=== PATIENT | male | born 1970 | race Native Hawaiian/Other Pacific Islander ===

== ENCOUNTER → 2017-11-14 | Outpatient (CLI) | payer BC ==
--- NOTE | 2017-11-14 15:05 | US ---
EXAMINATION TYPE: US kidneys/renal and bladder DATE OF EXAM: 11/14/2017 COMPARISON: NONE CLINICAL HISTORY: R10.9 FLANK PAIN. EXAM MEASUREMENTS: Right Kidney: 12.0 x 5.0 x 5.6 cm Left Kidney: 11.6 x 6.1 x 5.6 cm Right Kidney: No hydronephrosis or masses seen Left Kidney: No hydronephrosis or masses seen Bladder: wnl Bilateral Jets seen: Yes There is no evidence for hydronephrosis at this point in time. No nephrolithiasis is seen. No berenice s are identified. The urinary bladder is anechoic. Bilateral ureteral jets are seen. IMPRESSION: No hydronephrosis, nephrolithiasis or sonographic sequela of medical renal disease.
== END | disposition home or self-care (01) ==
LOC: RADUSWWP 14:05
PROVIDERS: ATTEND Internal Medicine
DX: R10.9 Unspecified abdominal pain (principal)
CPT/HCPCS: 76770

== ENCOUNTER → 2018-05-28 | Outpatient (CLI) | payer BC ==
--- NOTE | 2018-05-28 08:52 | CT ---
EXAMINATION TYPE: CT abdomen pelvis wo con DATE OF EXAM: 05/28/2018 COMPARISON: None HISTORY: Left lower quadrant pain CT DLP: 688 mGycm Automated exposure control for dose reduction was used. TECHNIQUE: Helical acquisition of images was performed from the lung bases through the pelvis. FINDINGS: Lack of intravenous and oral contrast limit evaluation of both the hollow and solid viscera . LUNG BASES: There is minimal left basilar subsegmental atelectasis is present. LIVER/GB: No significant abnormality is appreciated. PANCREAS: No significant abnormality is seen. SPLEEN: No significant abnormality is seen. ADRENALS: No significant abnormality is seen. KIDNEYS: There is a punctate nonobstructing 1 to 2 mm left lower pole renal calculus seen on coronal series 5 image 60. No hydronephrosis is seen of either kidney. No urinary bladder calculi. No hydrour eter. FREE AIR: No free air is visualized RETROPERITONEAL ADENOPATHY: No greater than 1 cm short axis lymph node is noted in the abdomen or pe lvis given the limitation of lack of intravenous contrast. REPRODUCTIVE ORGANS: Prostate gland is heterogenous containing few central zone calcifications. OSSEOUS STRUCTURES: There is grade 1 anterolisthesis of L4 on L5 secondary to bilateral pars interar ticularis defects. Bilateral pars interarticularis defects are also seen of L5 on S1 without anteroli sthesis. BOWEL: There is a moderate amount retained colonic stool. No evidence of dilated large or small adam l. Appendix is air-filled and within normal limits of size. OTHER: Moderate atherosclerosis is seen of the abdominal aorta and its branches. Abdominal aorta is o f normal course and caliber. No inguinal hernia is identified. IMPRESSION: 1. SOLITARY NONOBSTRUCTING 1 TO 2 MM LEFT RENAL CALCULUS. 2. MODERATE AMOUNT RETAINED COLONIC STOOL WITHOUT EVIDENCE OF BOWEL OBSTRUCTION OR SURROUNDING INFLAM MATORY FAT STRANDING. 3. NO FINDINGS TO CORRESPOND TO THE PATIENT'S FOCAL LEFT LOWER QUADRANT PAIN. 4. 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
== END ==
LOC: RADCTMAIN 08:03
PROVIDERS: ATTEND Internal Medicine
DX: N20.0 Calculus of kidney (principal)
CPT/HCPCS: 74176

== ENCOUNTER → 2022-12-19 | Outpatient (CLI) | payer BC ==
--- NOTE | 2022-12-20 08:12 | XR ---
EXAMINATION TYPE: XR Hip Complete RT DATE OF EXAM: 12/19/2022 COMPARISON: NONE HISTORY: Pain TECHNIQUE: 2 views submitted FINDINGS: There is no evidence of erosive change or acute fracture. Hypertrophic changes in the acetabulum. Mil d arthropathy. Diffuse IMPRESSION: 1. Mild arthropathy.
--- NOTE | 2022-12-20 08:17 | XR ---
EXAM TYPE: LUMBAR SPINE X RAY SERIES COMPARISON: NONE HISTORY: Pain TECHNIQUE: 3 views are submitted. FINDINGS: Alignment is anatomic. The pedicles are intact. The transverse processes are intact. There is a gr kika 1 anterolisthesis L4-5 and L5-S1 with spondylolysis at L4 and L5. Multilevel mild spurring. Diffu se osteopenia. IMPRESSION: 1. Severe degenerative disc disease L4-5 and L5-S1 suspect spondylolysis at both levels with grade 1 anterolisthesis. This likely results in foraminal encroachment. Recommend follow-up MRI.
== END | disposition home or self-care (01) ==
LOC: LABWHC1 15:28
PROVIDERS: ATTEND Internal Medicine
DX: M12.9 Arthropathy, unspecified (principal); M51.36 Other intervertebral disc degeneration, lumbar region
CPT/HCPCS: 72100; 73502

== ENCOUNTER → 2023-04-11 | Outpatient (CLI) | payer BC ==
[2023-04-12 02:40] LABS: Basophils # (A) 0.11 X 10*3/uL (0.00-0.10); Eosinophils # (A) 0.25 X 10*3/uL (0.04-0.35); Eosinophils % (A) 2.2 %; HCT 35.8 % (39.6-50.0); HGB 10.9 g/dL (13.0-17.0); Lymphocytes % (A) 40.5 %; MCH 27.1 pg (27.0-32.0); MCHC 30.4 g/dL (32.0-37.0); MCV 89.1 FL (80.0-97.0); Mean Platelet Volume 11.2 FL (9.5-12.2); Monocytes # (A) 0.68 X 10*3/uL (0.20-1.00); Monocytes % (A) 6.1 %; NRBC Per 100 WBC 0 X 10*3/uL (0.00-0.01); Neutrophils # (A) 5.54 X 10*3/uL (1.80-7.70); Neutrophils % (A) 49.8 %; Platelet Count 263 X 10*3/uL (140-440); RBC 4.02 X 10*6/uL (4.40-5.60); RDW 13.5 % (11.5-14.5); WBC 11.12 X 10*3/uL (4.50-10.00)
[2023-04-12 02:57] LABS: ALT 11 U/L (10-49); AST 10 U/L (14-35); Albumin 3.5 g/dL (3.8-4.9); Albumin/Globulin Ratio 1.21 Ratio (1.60-3.17); Alkaline Phosphatase 167 U/L (41-126); BUN/Creat Ratio 20.56 Ratio (12.00-20.00); Blood Urea Nitrogen 18.5 mg/dL (9.0-27.0); Calcium 9.1 mg/dL (8.7-10.3); Carbon Dioxide 22.9 mmol/L (21.6-31.8); Chloride 103 mmol/L (96-109); Globulin 2.9 g/dL (1.6-3.3); Glucose 321 mg/dL (70-110); Potassium 4.8 mmol/L (3.5-5.5); Sodium 136 mmol/L (135-145); Total Bilirubin <0.2 mg/dL (0.3-1.2); Total Protein 6.4 g/dL (6.2-8.2)
[2023-04-12 04:05] LABS: INR 0.93 sec (0.93-1.11); Prothrombin Time 10.1 sec (9.9-11.9)
== END | disposition home or self-care (01) ==
LOC: LABPAT 15:08
PROVIDERS: ATTEND Internal Medicine
DX: Z01.812 Encounter for preprocedural laboratory examination (principal); E11.9 Type 2 diabetes mellitus without complications
CPT/HCPCS: 80053; 83036; 85025; 85610; 93005

== ENCOUNTER → 2023-04-14 | Outpatient (CLI) | payer BC ==
--- NOTE | 2023-04-15 08:35 | CT ---
EXAMINATION TYPE: CT lumbar spine wo con DATE OF EXAM: 04/14/2023 5:55 PM COMPARISON: MRI 912 HISTORY: low back pain, pre surgical CT DLP: 467.10 mGycm Automated exposure control for dose reduction was used. Unenhanced CT of the lumbar spine was performed. Bone and soft tissue window settings are submitted as well as coronal and sagittal reconstructions. L1-L2: Normal disc space height. No disc herniation protrusion or central stenosis. No facet joint arthropathy. No evidence for foraminal encroachment. L2-L3: Normal disc space height. No disc herniation protrusion or central stenosis. No facet joint arthropathy. No evidence for foraminal encroachment. L3-L4: Normal disc space height. No disc herniation protrusion or central stenosis. No facet joint arthropathy. No evidence for foraminal encroachment. Facet arthropathy. L4-L5: Vacuum disc with grade 1 anterolisthesis. Bilateral spondylolysis and there is facet arthropat hy. Broad-based central disc the patient is very severe bilateral foraminal protrusion L5-S1: Vacuum disc compatible severe degenerative disc disease. There is bilateral spondylolysis with no significant spondylolisthesis. Broad-based disc protrusion with moderate canal stenosis and sever e bilateral foraminal encroachment. Vertebral body hemangioma lower thoracic spine. Clear. Aorta normal caliber. Nodularity left renal gl and is nonspecific subcentimeter in size, most likely a benign adenoma. Hypertrophic arthropathy of t he SI joints. 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 IMPRESSION: 1. Severe degenerative disc disease L4-L5 with grade 1 anterolisthesis secondary to bilateral spondyl olysis. Severe bilateral foraminal encroachment with broad-based disc protrusion and mild central chhaya nosis. 2. Severe degenerative disc disease L5-S1 with bilateral spondylolysis. Severe bilateral foraminal en croachment with broad-based disc protrusion and moderate central stenosis.
== END | disposition home or self-care (01) ==
LOC: RADCTMAIN 17:20
PROVIDERS: ATTEND Orthopaedic Surgery
DX: M47.817 Spondylosis without myelopathy or radiculopathy, lumbosacral region (principal); M51.36 Other intervertebral disc degeneration, lumbar region; M43.16 Spondylolisthesis, lumbar region; M51.37 Other intervertebral disc degeneration, lumbosacral region; M51.26 Other intervertebral disc displacement, lumbar region; M48.061 Spinal stenosis, lumbar region without neurogenic claudication
CPT/HCPCS: 72131

== ENCOUNTER → 2023-09-26 | Outpatient (CLI) | payer BC ==
--- NOTE | 2023-09-28 18:46 | CTL ---
EXAMINATION TYPE: CT Low Dose Lung DATE OF EXAM ORDERED: 09/26/2023 HISTORY: . Lung cancer screening CT DLP: 101.[address] CTDI: 2.8 mGy Automated exposure control for dose reduction was used. SCREENING VISIT: Initial COMPARISON: None TECHNIQUE: Low dose computed tomography scan was performed through the chest at 1 mm thick sections a nd reconstructed images in the coronal plane at [address] DIAGNOSTIC QUALITY: Satisfactory FINDINGS: LUNG NODULES: Present, detailed below: 1. There is a 12 x 19 mm oval density at the right apex. Series 3 Image 31. This is lobular and has s ome spiculation on the lung windows. This is considered suspicious. 2. There is a 1.2 cm pleural-based density posterior medial left apex. Series 3 Image 44. LUNGS: COPD: Severity: Moderate Fibrosis: Severity: None Lymph nodes: None Other findings: None RIGHT PLEURAL SPACE: Effusion: None Calcification: None Thickening: None Pneumothorax: None LEFT PLEURAL SPACE: Effusion: None Calcification: None Thickening: None Pneumothorax: None HEART: Other: Ascending thoracic aorta at the level the main pulmonary artery measures 3.1 cm. The main pul monary artery at the bifurcation measures 2.7 cm. Heart Size: Normal Coronary calcification: None Pericardial effusion: None OTHER FINDINGS: Upper abdomen: Normal Bony thorax: Normal Supraclavicular region: Normal IMPRESSION: Nodular density within the right apex. Additional workup with PET CT is recommended. FOLLOW UP CT CHEST RECOMMENDATION: PET/CT CT LUNG RAD: Lung-Rad 4A Suspicious
== END | disposition home or self-care (01) ==
LOC: RADCTMAIN 06:25
PROVIDERS: ATTEND Internal Medicine
DX: Z12.2 Encounter for screening for malignant neoplasm of respiratory organs (principal); J98.4 Other disorders of lung; F17.210 Nicotine dependence, cigarettes, uncomplicated
CPT/HCPCS: 71271

== ENCOUNTER 2024-05-07 13:15 | Emergency (ER) | payer OTHER ==
--- NOTE | 2024-05-07 13:48 | ED ---
ENT HPI - General Stated complaint: L ear pain Time Seen by Provider: 05/07/24 13:46 Source: patient, RN notes reviewed - History of Present Illness Initial comments: 53 year old male presenting for left ear pain x 1 week. States pain has been worsening in severity and he now is having hearing loss in left side as well. Denies drainage, fever, nasal congestion, sore throat. - Related Data Home Medications Medication Instructions Recorded Confirmed Glimepiride 2 mg PO BID 04/29/23 04/29/23 metFORMIN HCL 1,000 mg PO BID 04/29/23 04/29/23 Previous Rx's Medication Instructions Recorded Amoxicillin 875 mg PO Q12HR 7 Days #14 tablet 05/07/24 Cetirizine HCl [Zyrtec] 10 mg PO DAILY 30 Days #30 tab 05/07/24 Allergies Allergy/AdvReac Type Severity Reaction Status Date / Time No Known Allergies Allergy Verified 05/07/24 14:21 Review of Systems ROS Statement: Those systems with pertinent positive or pertinent negative responses have been documented in the HPI. ROS Other: All systems not noted in ROS Statement are negative. Past Medical History Past Medical History: Diabetes Mellitus History of Any Multi-Drug Resistant Organisms: None Reported Past Surgical History: No Surgical Hx Reported Past Drug Use History: None Reported General Exam - General Exam Comments Initial Comments: Visual Physical Exam General: Well-appearing, nontoxic, no acute distress. Head: Normocephalic, atraumatic Eyes: PERRLA, EOMI ENT: Airway patent Chest: Nonlabored breathing Skin: No visual rash, normal skin tone Neuro: Alert and oriented 3 Musculoskeletal: No gross abnormalities General appearance: alert, in no apparent distress Head exam: Present: atraumatic, normocephalic, normal inspection Eye exam: Present: normal appearance, PERRL, EOMI. Absent: scleral icterus, conjunctival injection, periorbital swelling ENT exam: Present: normal exam, normal oropharynx, mucous membranes moist. Absent: TM's normal bilaterally (Right TM unable to be visualized due to large amount of cerumen. Left TM is erythematous and bulging, ear canal clear. No mastoid tenderness or erythema) Neck exam: Present: normal inspection. Absent: tenderness, meningismus, lymphadenopathy Respiratory exam: Present: normal lung sounds bilaterally. Absent: respiratory distress, wheezes, rales, rhonchi, stridor Cardiovascular Exam: Present: regular rate, normal rhythm, normal heart sounds. Absent: systolic murmur, diastolic murmur, rubs, gallop, clicks Neurological exam: Present: alert, oriented X3 Psychiatric exam: Present: normal affect, normal mood Skin exam: Present: warm, dry, intact, normal color. Absent: rash Course Vital Signs 05/07/24 14:22 Temperature 97.9 F Pulse Rate 87 Respiratory 18 Rate Blood Pressure 149/88 O2 Sat by Pulse 96 Oximetry Medical Decision Making - Medical Decision Making I completed the quick note portion of this chart signed Martha Angeles PA-C Was pt. sent in by a medical professional or institution (, [facility], [facility], urgent care, hospital, or [facility]...) When possible be specific @ -No Did you speak to anyone other than the patient for history (EMS, parent, family, police, friend...)? What history was obtained from this source @ -No Did you review nursing and triage notes (agree or disagree)? Why? @ -I reviewed and agree with nursing and triage notes Were old charts reviewed (outside hosp., previous admission, EMS record, old EKG, old radiological studies, urgent care reports/EKG's, [facility] records)? Report findings @ -No old charts were reviewed Differential Diagnosis (chest pain, altered mental status, abdominal pain women, abdominal pain men, vaginal bleeding, weakness, fever, dyspnea, syncope, headache, dizziness, GI bleed, back pain, seizure, CVA, palpatations, mental health, musculoskeletal)? @ -Otitis media, otitis externa, cerumen impaction, mastoiditis EKG interpreted by me (3pts min.). @ -None X-rays interpreted by me (1pt min.). @ -None done CT interpreted by me (1pt min.). @ -None done U/S interpreted by me (1pt. min.). @ -None done What testing was considered but not performed or refused? (CT, X-rays, U/S, labs)? Why? @ -None What meds were considered but not given or refused? Why? @ -None Did you discuss the management of the patient with other professionals (professionals i.e. , [facility], [facility], lab, RT, psych nurse, social security assessor, event specialist, teacher, assignment officer, binder caser)? Give summary @ -No Was smoking cessation discussed for >3mins.? @ -No Was critical care preformed (if so, how long)? @ -No Were there social determinants of health that impacted care today? How? (Homelessness, low income, unemployed, alcoholism, drug addiction, transportation, low edu. Level, literacy, decrease access to med. care, snf, rehab)? @ -No Was there de-escalation of care discussed even if they declined (Discuss DNR or withdrawal of care, Hospice)? DNR status @ -No What co-morbidities impacted this encounter? (DM, HTN, Smoking, COPD, CAD, Cancer, CVA, ARF, Chemo, Hep., AIDS, mental health diagnosis, sleep apnea, morbid obesity)? @ -None Was patient admitted / discharged? Hospital course, mention meds given and route, prescriptions, significant lab abnormalities, going to OR and other pertinent info. @ -Discharge. This is a 53-year-old male presenting for left ear pain x 1 week. Left TM is erythematous and bulging. No sign of mastoiditis. Discussed diagnosis of otitis media with patient. Prescribed high-dose amoxicillin and Zyrtec. Appropriate return precautions and follow-up care discussed. Case was discussed with my ED attending Dr. Richardson. Undiagnosed new problem with uncertain prognosis? @ -No Drug Therapy requiring intensive monitoring for toxicity (Heparin, Nitro, Insulin, Cardizem)? @ -No Were any procedures done? @ -No Diagnosis/symptom? @ -Left otitis media Acute, or Chronic, or Acute on Chronic? @ -Acute Uncomplicated (without systemic symptoms) or Complicated (systemic symptoms)? @ -Uncomplicated Side effects of treatment? @ -No Exacerbation, Progression, or Severe Exacerbation? @ -No Poses a threat to life or bodily function? How? (Chest pain, [place], [place], pneumonia, PE, COPD, DKA, ARF, appy, cholecystitis, CVA, Diverticulitis, Homicidal, Suicidal, threat to staff... and all critical care pts) @ -No Disposition Clinical Impression: Left otitis media Disposition: HOME SELF-CARE Condition: Stable Instructions (If sedation given, give patient instructions): Ear Infection (ED) Additional Instructions: Take amoxicillin twice daily for 7 days. Take Zyrtec once daily. You may use Tylenol or ibuprofen as needed for ear pain. Please return to the Emergency Department if symptoms worsen or any other concerns. Prescriptions: Amoxicillin 875 mg PO Q12HR 7 Days #14 tablet Cetirizine HCl [Zyrtec] 10 mg PO DAILY 30 Days #30 tab Is patient prescribed a controlled substance at d/c from ED?: No Referrals: None,Stated [Primary Care Provider] - 1-2 days Forms: Area PCPs Time of Disposition: 14:51
[2024-05-07 14:24] VITALS: BP 149/88; PULSE 87; RESP 18; TEMP 97.9
== END 2024-05-07 15:38 | disposition home or self-care (01) ==
LOC: EC 13:15
DX: H66.92 Otitis media, unspecified, left ear (principal)
CPT/HCPCS: 99282

== ENCOUNTER 2024-11-24 12:21 | Inpatient (IN) | payer OTHER ==
[2024-11-24] MEDS: IBUPROFEN 600 MG TAB PO STA (13:00)
[2024-11-24] MEDS: ACETAMINOPHEN TAB 500 MG TAB PO STA (13:00)
[2024-11-24] MEDS: LACTATED RINGERS 1,000 ML IV SCH (13:04)
--- NOTE | 2024-11-24 13:11 | ED ---
General Adult HPI - General Chief complaint: Shortness of Breath Stated complaint: Fall-Left Leg Time Seen by Provider: 11/24/24 12:35 Source: patient, RN notes reviewed, old records reviewed Mode of arrival: ambulatory Limitations: no limitations - History of Present Illness Initial comments: This is a 54-year-old male who presents to the emergency department complaining that he has been short of breath and coughing for about a week. Patient did not know he had a fever but in triage she had a fever. I took his oral temperature was 103.2. Patient denies any chest pain. Patient denies any back pain. Patient has abdominal pain patient has nausea vomiting diarrhea. Patient denies any dysuria hematuria urinary frequency - Related Data Home Medications Medication Instructions Recorded Confirmed Glimepiride 2 mg PO BID 04/29/23 04/29/23 metFORMIN HCL 1,000 mg PO BID 04/29/23 04/29/23 Previous Rx's Medication Instructions Recorded Amoxicillin 875 mg PO Q12HR 7 Days #14 tablet 05/07/24 Cetirizine HCl [Zyrtec] 10 mg PO DAILY 30 Days #30 tab 05/07/24 Allergies Allergy/AdvReac Type Severity Reaction Status Date / Time No Known Allergies Allergy Verified 11/24/24 12:32 Review of Systems ROS Statement: Those systems with pertinent positive or pertinent negative responses have been documented in the HPI. ROS Other: All systems not noted in ROS Statement are negative. Past Medical History Past Medical History: Diabetes Mellitus History of Any Multi-Drug Resistant Organisms: None Reported Past Surgical History: No Surgical Hx Reported Past Psychological History: No Psychological Hx Reported Smoking Status: Current every day smoker Past Alcohol Use History: None Reported Past Drug Use History: Marijuana General Exam - General Exam Comments Initial Comments: GENERAL: Patient is well-developed and well-nourished. Patient is nontoxic and well- hydrated and is in no acute distress. ENT: Neck is soft and supple. No significant lymphadenopathy is noted. Oropharynx is clear. Moist mucous membranes. Neck has full range of motion without eliciting any pain. EYES: The sclera were anicteric and conjunctiva were pink and moist. Extraocular movements were intact and pupils were equal round and reactive to light. Eyelids were unremarkable. PULMONARY: Unlabored respirations. Good breath sounds bilaterally. No audible rales rhonchi or wheezing was noted. CARDIOVASCULAR: There is a regular rate and rhythm without any murmurs gallops or rubs. ABDOMEN: Soft and nontender with normal bowel sounds. SKIN: Skin is clear with no lesions or rashes and otherwise unremarkable. NEUROLOGIC: Patient is alert and oriented x3. Cranial nerves II through XII are grossly intact. Motor and sensory are also intact. Normal speech, volume and content. Symmetrical smile. MUSCULOSKELETAL: Normal extremities with adequate strength and full range of motion. LYMPHATICS: No significant lymphadenopathy is noted PSYCHIATRIC: Normal psychiatric evaluation. Limitations: no limitations Course Vital Signs 11/24/24 11/24/24 11/24/24 12:26 12:43 13:15 Temperature 100.6 F H 103.2 F H Pulse Rate 131 H Respiratory 20 22 Rate Blood Pressure 156/79 O2 Sat by Pulse 95 Oximetry 11/24/24 11/24/24 13:40 15:07 Temperature 100.7 F H Pulse Rate 106 H 86 Respiratory 20 18 Rate Blood Pressure 138/72 115/87 O2 Sat by Pulse 95 94 L Oximetry Medical Decision Making - Medical Decision Making EKG is interpreted by myself and EKG shows a sinus tachycardia at 120 bpm HI 135 QRS 137 QT interval is 315 QTc is 386 Patient has right bundle branch block Was pt. sent in by a medical professional or institution ([facility], [facility] [facility], urgent care, hospital, or intermediate...) When possible be specific @ -No Did you speak to anyone other than the patient for history (EMS, parent, family, police, friend...)? What history was obtained from this source @ -No Did you review nursing and triage notes (agree or disagree)? Why? @ -I reviewed and agree with nursing and triage notes Were old charts reviewed (outside hosp., previous admission, EMS record, old EKG, old radiological studies, urgent care reports/EKG's, intermediate records)? Report findings @ -No old charts were reviewed Differential Diagnosis? @ -Differential Chest Pain: Stable Angina, Unstable Angina, STEMI, NSTEMI Aortic Dissection, Pneumothorax, Musculoskeletal, Esophageal Spasm GERD, Cholecystitis, Pancreatitis, Zoster, this is not meant to be an all-inclusive list. EKG interpreted by me (3pts min.). @ -As above X-rays interpreted by me (1pt min.). @ -Chest x-ray shows obvious pneumonia on the left base CT interpreted by me (1pt min.). @ -None done U/S interpreted by me (1pt. min.). @ -None done What testing was considered but not performed or refused? (CT, X-rays, U/S, labs)? Why? @ -None What meds were considered but not given or refused? Why? @ -None Did you discuss the management of the patient with other professionals (professionals i.e. DrLucian, PA, [employer], lab, RT, psych nurse, clinical social work therapist, host hostess, teacher, sales and service officer, caseworker)? Give summary @ -I spoke with Dr. Viveros he agreed to admit the patient Was smoking cessation discussed for >3mins.? @ -No Was critical care preformed (if so, how long)? @ -No Were there social determinants of health that impacted care today? How? (Homelessness, low income, unemployed, alcoholism, drug addiction, transportation, low edu. Level, literacy, decrease access to med. care, longterm, rehab)? @ -No Was there de-escalation of care discussed even if they declined (Discuss DNR or withdrawal of care, Hospice)? DNR status @ -No What co-morbidities impacted this encounter? (DM, HTN, Smoking, COPD, CAD, Cancer, CVA, ARF, Chemo, Hep., AIDS, mental health diagnosis, sleep apnea, morbid obesity)? @ -None Was patient admitted / discharged? Hospital course, mention meds given and route, prescriptions, significant lab abnormalities, going to OR and other pertinent info. @ -Patient would given a liter and a half of fluid and and 2 g of Rocephin IV push Undiagnosed new problem with uncertain prognosis? @ -No Drug Therapy requiring intensive monitoring for toxicity (Heparin, Nitro, Insulin, Cardizem)? @ -No Were any procedures done? @ -No Diagnosis/symptom? @ -Pneumonia Acute, or Chronic, or Acute on Chronic? @ -Acute Uncomplicated (without systemic symptoms) or Complicated (systemic symptoms)? @ -Comp Side effects of treatment? @ -No Exacerbation, Progression, or Severe Exacerbation? @ -No Poses a threat to life or bodily function? How? (Chest pain, [place], [place], pneumonia, PE, COPD, DKA, ARF, appy, cholecystitis, CVA, Diverticulitis, Homicidal, Suicidal, threat to staff... and all critical care pts) @ -Yes this can lead to sepsis and endorgan dysfunction Diagnosis/symptom? @ -Hyponatremia Acute, or Chronic, or Acute on Chronic? @ -Default Uncomplicated (without systemic symptoms) or Complicated (systemic symptoms)? @ -Complicated Side effects of treatment? @ -None Exacerbation, Progression, or Severe Exacerbation] @ -No Poses a threat to life or bodily function? @ -No Diagnosis/symptom? @ -Acute renal failure Acute, or Chronic, or Acute on Chronic? @ -Acute Uncomplicated (without systemic symptoms) or Complicated (systemic symptoms)? @ -Complicated Side effects of treatment? @ -None Exacerbation, Progression, or Severe Exacerbation] @ -No Poses a threat to life or bodily function? @ -Yes this can lead to electrolyte abnormalities and arrhythmia - Lab Data Result diagrams: 11/24/24 13:13 11/24/24 13:13 Lab Results 11/24/24 11/24/24 11/24/24 Range/Units 13:13 13:13 13:13 WBC 11.15 H (4.50-10.00) 10*3/uL RBC 4.18 L (4.40-5.60) 10*6/uL Hgb 11.1 L (13.0-17.0) g/dL Hct 32.4 L (39.6-50.0) % MCV 77.5 L (80.0-97.0) fL MCH 26.6 L (27.0-32.0) pg MCHC 34.3 (32.0-37.0) g/dL Plt Count 154 (140-440) 10*3/uL MPV 11.5 (9.5-12.2) fL Immature Gran % (Auto) 0.9 % Immature Gran # 0.10 H (0.00-0.04) 10*3/uL Sodium 127 L (137-145) mmol/L Potassium 4.8 (3.5-5.1) mmol/L Chloride 94 L (98-107) mmol/L Carbon Dioxide 18 L (22-30) mmol/L Anion Gap 15 mmol/L BUN 55 H (9-20) mg/dL Creatinine 3.11 H (0.66-1.25) mg/dL Est GFR (CKD-EPI)AfAm 25 (>60 ml/min/1.73 sqM) Est GFR (CKD-EPI)NonAf 21 (>60 ml/min/1.73 sqM) Glucose 300 H (74-99) mg/dL Plasma Lactic Acid Max 1.7 (0.7-2.0) mmol/L Calcium 8.1 L (8.4-10.2) mg/dL Total Bilirubin 0.6 (0.2-1.3) mg/dL AST 312 H (17-59) U/L ALT 85 H (4-49) U/L Alkaline Phosphatase 95 (38-126) U/L Total Protein 6.3 (6.3-8.2) g/dL Albumin 3.1 L (3.5-5.0) g/dL Influenza Type A (PCR) (Not Detectd) Influenza Type B (PCR) (Not Detectd) RSV (PCR) (Not Detectd) SARS-CoV-2 (PCR) (Not Detectd) 11/24/24 Range/Units 13:13 WBC (4.50-10.00) 10*3/uL RBC (4.40-5.60) 10*6/uL Hgb (13.0-17.0) g/dL Hct (39.6-50.0) % MCV (80.0-97.0) fL MCH (27.0-32.0) pg MCHC (32.0-37.0) g/dL Plt Count (140-440) 10*3/uL MPV (9.5-12.2) fL Immature Gran % (Auto) % Immature Gran # (0.00-0.04) 10*3/uL Sodium (137-145) mmol/L Potassium (3.5-5.1) mmol/L Chloride (98-107) mmol/L Carbon Dioxide (22-30) mmol/L Anion Gap mmol/L BUN (9-20) mg/dL Creatinine (0.66-1.25) mg/dL Est GFR (CKD-EPI)AfAm (>60 ml/min/1.73 sqM) Est GFR (CKD-EPI)NonAf (>60 ml/min/1.73 sqM) Glucose (74-99) mg/dL Plasma Lactic Acid Max (0.7-2.0) mmol/L Calcium (8.4-10.2) mg/dL Total Bilirubin (0.2-1.3) mg/dL AST (17-59) U/L ALT (4-49) U/L Alkaline Phosphatase (38-126) U/L Total Protein (6.3-8.2) g/dL Albumin (3.5-5.0) g/dL Influenza Type A (PCR) Not Detected (Not Detectd) Influenza Type B (PCR) Not Detected (Not Detectd) RSV (PCR) Not Detected (Not Detectd) SARS-CoV-2 (PCR) Not Detected (Not Detectd) Disposition Clinical Impression: Pneumonia, Hyponatremia, Acute renal failure Disposition: ADMITTED IP TO THIS HOSP Referrals: None,Stated [REFERRING] - 1-2 days Time of Disposition: 15:38
[2024-11-24 13:28] LABS: Basophils # (A) 0.06 10*3/uL (0.00-0.10); Basophils % (A) 0.5 %; Eosinophils # (A) 0.00 10*3/uL (0.04-0.35); Eosinophils % (A) 0.0 %; HCT 32.4 % (39.6-50.0); HGB 11.1 g/dL (13.0-17.0); Lymphocytes # (A) 0.58 10*3/uL (0.90-5.00); Lymphocytes % (A) 5.2 %; MCH 26.6 pg (27.0-32.0); MCHC 34.3 g/dL (32.0-37.0); MCV 77.5 fL (80.0-97.0); Monocytes # (A) 0.37 10*3/uL (0.20-1.00); Monocytes % (A) 3.3 %; Neutrophils # (A) 10.04 10*3/uL (1.80-7.70); Neutrophils % (A) 90.1 %; Platelet Count 154 10*3/uL (140-440); RBC 4.18 10*6/uL (4.40-5.60); RDW 13.7 % (11.5-14.5); WBC 11.15 10*3/uL (4.50-10.00)
[2024-11-24] MEDS: cefTRIAXone IN SWFI 1,000 MG/10 ML SYRINGE IVP STA ×2 (13:36→13:39)
[2024-11-24 13:50] LABS: ALT 85 U/L (4-49); AST 312 U/L (17-59); African American GFR (CKD) 25 (>60 ml/min/1.73 sqM); Albumin 3.1 g/dL (3.5-5.0); Alkaline Phosphatase 95 U/L (38-126); Anion Gap 15 mmol/L; Blood Urea Nitrogen 55 mg/dL (9-20); Calcium 8.1 mg/dL (8.4-10.2); Carbon Dioxide 18 mmol/L (22-30); Chloride 94 mmol/L (98-107); Glucose 300 mg/dL (74-99); Non-African American GFR(CKD) 21 (>60 ml/min/1.73 sqM); Potassium 4.8 mmol/L (3.5-5.1); Sodium 127 mmol/L (137-145); Total Protein 6.3 g/dL (6.3-8.2)
[2024-11-24 15:06] LABS: RSV Not Detected (Not Detectd)
--- NOTE | 2024-11-24 15:10 | XR ---
EXAMINATION TYPE: XR chest 2V DATE OF EXAM: 11/24/2024 1:30 PM COMPARISON: None CLINICAL INDICATION: Male, 54 years old with history of Fever, , TECHNIQUE: PA and lateral views FINDINGS: The cardiomediastinal silhouette, aorta, and pulmonary vasculature are within normal limits. Mild per ibronchial densities. Large area of posterior lower lung consolidation. Hyperinflation. IMPRESSION: A large left basilar pneumonia on the lateral view. There is background of COPD. [facility], Workstation: [facility], 11/24/2024 1:45 PM
[2024-11-24] MEDS ORDERED: PNEUMONIA PROTOCOL UTILIZED 1 EACH MISC PO PRN (15:42)
[2024-11-24 15:45] LABS: RBC Morphology Normal
[2024-11-24] MEDS: AZITHROMYCIN 500 MG in SODIUM CHLORIDE 0.9% 250 ML IVPB STA (16:27)
[2024-11-24] MEDS ORDERED: NALOXONE 0.4 MG/ML 1 ML VIAL IV PRN (16:53)
[2024-11-24] MEDS ORDERED: ONDANSETRON 4 MG/2 ML VIAL IVP PRN (16:54)
[2024-11-24] MEDS ORDERED: HYDROcodone/APAP 5-325MG 1 EACH TAB PO PRN (16:54)
[2024-11-24] MEDS ORDERED: IPRATROPIUM-ALBUTEROL 3 ML NEB INHALATION PRN (16:56)
[2024-11-24] MEDS ORDERED: DEXTROSE 50% SYRINGE 50 ML IVP PRN ×2 (16:58)
--- NOTE | 2024-11-24 17:12 | P.HPIM ---
History of Present Illness H&P Date: 11/24/24 54 year old M with PMH of DM presents to the ED. He complains of cough productive of yellow sputum, exertional shortness of breath that has been progressively getting worse over the past 3 weeks. He did experience a fall today as his left leg gave out. He attributes the fall to chronic back issues. Smokes 1 PPD since age 16. Reports poor oral intake for the last 4 days. No fever or chills. No chest pain. No sick contacts. In the ED he underwent extensive evaluation. Tmax 103.2F, RR 22, HR 131, BP 156/79, 95% on RA. CBC, CMP significant for WBC 11.15, RBC 4.18, Hg 11.1, Hct 32.4, MCV 77.5, Na 127, Cl 94, bicarb 18, BUN 55, Cr 3.11, glu 300, Ca 8.1, AST 312, ALT 85, alb 3.1. Flu, RSV, COVID neg. CXR sinsu tachycardia rate of 120. CXR large left basilar PNA. Patient is admitted for further workup and management. General: non toxic, no distress, appears at stated age Derm: warm, dry Head: atraumatic, normocephalic, symmetric Eyes: EOMI, no lid lag, anicteric sclera Mouth: no lip lesion, mucus membranes moist Cardiovascular: S1S2 tachy, no murmur Lungs: L side rhonchi with scattered wheezing bilateral, no rales , no accessory muscle use Ext: no gross muscle atrophy, no edema, no contractures Neuro: no focal neuro deficits Psych: Alert and oriented. Based on my assessment of this patient, this patient meets a high complexity level of care. Sepsis secondary to community acquired PNA: Tachycardia with elevated RR and + source of infection. Start Rocephin 2g IV QD + Azithromycin 500 mg PO QD. Mucinex 600 mg PO BID. Tylenol 650 mg PO Q6H PRN. DuoNeb QID scheduled and Q2H PRN SOB/wheezing. NS at 100 cc/hr. Telemetry monitoring. Obtain Legionella Ag, Sputum + BCx. Consult Pulmonary. LOUISE: Prerenal. Obtain Renal/Bladder US. IV hydration as above. Trend. Hyponatremia: Likely due to dehydration. IV hydration as above. Trend. DM with hyperglycemia: Obtain A1c. Start CECILY + Accuchecks ACHS along with hypoglycemic precautions. Microcytic anemia: Obtain iron studies. Transaminitis: Unknown etiology. Repeat in the AM. Fall: Fall precautions. PT and OT consult. CODE STATUS: FULL CODE. DVT Prophylaxis: Heparin SQ GI Prophylaxis: Designated medical POA if patient is not able to make medical decisions for themselves: Son I have reviewed the following lactation consultant notes: ED note I have reviewed the results of the following tests: As above I have ordered the following tests: As above I have discussed the care of this patient with the following independent historian: I have independently interpreted the following test below: CXR I have discussed the management of this patient with the following physician: Past Medical History Past Medical History: Diabetes Mellitus History of Any Multi-Drug Resistant Organisms: None Reported Past Surgical History: No Surgical Hx Reported Past Psychological History: No Psychological Hx Reported Smoking Status: Current every day smoker Past Alcohol Use History: None Reported Past Drug Use History: Marijuana Medications and Allergies Home Medications Medication Instructions Recorded Confirmed Type No Known Home Medications 11/24/24 11/24/24 History Allergies Allergy/AdvReac Type Severity Reaction Status Date / Time No Known Allergies Allergy Verified 11/24/24 16:27 Physical Exam Vitals: Vital Signs Temp Pulse Resp BP Pulse Ox 11/24/24 15:07 86 18 115/87 94 L 11/24/24 13:40 100.7 F H 106 H 20 138/72 95 11/24/24 13:15 22 11/24/24 12:43 103.2 F H 11/24/24 12:26 100.6 F H 131 H 20 156/79 95 Intake and Output 11/24/24 11/24/24 11/24/24 06:59 14:59 22:59 Other: Weight 72.575 kg Results CBC & Chem 7: 11/24/24 13:13 11/24/24 13:13 Labs: Abnormal Lab Results - Last 24 Hours (Table) 11/24/24 11/24/24 Range/Units 13:13 13:13 WBC 11.15 H (4.50-10.00) 10*3/uL RBC 4.18 L (4.40-5.60) 10*6/uL Hgb 11.1 L (13.0-17.0) g/dL Hct 32.4 L (39.6-50.0) % MCV 77.5 L (80.0-97.0) fL MCH 26.6 L (27.0-32.0) pg Immature Gran # 0.10 H (0.00-0.04) 10*3/uL Neutrophils # 10.04 H (1.80-7.70) 10*3/uL Lymphocytes # 0.58 L (0.90-5.00) 10*3/uL Eosinophils # 0.00 L (0.04-0.35) 10*3/uL Sodium 127 L (137-145) mmol/L Chloride 94 L (98-107) mmol/L Carbon Dioxide 18 L (22-30) mmol/L BUN 55 H (9-20) mg/dL Creatinine 3.11 H (0.66-1.25) mg/dL Glucose 300 H (74-99) mg/dL Calcium 8.1 L (8.4-10.2) mg/dL AST 312 H (17-59) U/L ALT 85 H (4-49) U/L Albumin 3.1 L (3.5-5.0) g/dL
[2024-11-24 18:25] LABS: Glucose,Whole Blood 203 mg/dL (70-110)
[2024-11-24] MEDS: INSULIN LISPRO (HumaLOG) 100 UNIT/ML 10 mL VL SQ SCH (18:28)
[2024-11-24] MEDS: SODIUM CHLORIDE 0.9% 1,000 ML IV SCH (18:29)
--- NOTE | 2024-11-24 18:31 | US ---
EXAMINATION TYPE: US kidneys/renal and bladder DATE OF EXAM: 11/24/2024 COMPARISON: CT 2019 CLINICAL INDICATION: Male, 54 years old with history of LOUISE; LOUISE TECHNIQUE: Grayscale imaging of the bilateral kidneys and urinary bladder: FINDINGS: EXAM MEASUREMENTS: Right Kidney: 11.8 x 5.4 x 5.1 cm Left Kidney: 9.6 x 5.4 x 5.2 cm Right Kidney: wnl Left Kidney: wnl Bladder: small area of echoes seen within the posterior bladder, ? layering debris Bilateral Jets seen: right only at this time There is no evidence for hydronephrosis at this point in time. No nephrolithiasis is seen. Corticome dullary differentiation is maintained bilaterally. No masses are identified. Small amount of layerin g debris within the posterior aspect of the urinary bladder. No discrete wall thickening. The right u reteral jet identified. IMPRESSION: 1. No hydronephrosis or nephrolithiasis. 2. Nonspecific urinary bladder debris. Correlate with urinalysis. [facility], , 11/24/2024 6:28 PM
[2024-11-24] MEDS: SYMBICORT 80-4.5 MCG INHALER INHALATION SCH (19:56)
[2024-11-24] MEDS: IPRATROPIUM-ALBUTEROL 3 ML NEB INHALATION SCH (19:57)
[2024-11-24 20:34] LABS: Glucose,Whole Blood 72 mg/dL (70-110)
[2024-11-25] MEDS: HEPARIN SODIUM,PORCINE 5,000 UNIT/ML 1 ML VIAL SQ SCH (00:45)
--- NOTE | 2024-11-25 01:28 | P.CNPUL ---
History of Present Illness Consult date: 11/25/24 Requesting physician: Lex Moreno Reason for consult: pneumonia Chief complaint: Fever, weakness History of present illness: Patient is a 54-year-old male who is a heavy tobacco smoker, current 1 pack/day, with [id number] history. Denies history of COPD or asthma. Did have a low- dose lung cancer screening Sep, 2023 remarkable for 1.2 x 1.9 cm oval density at the right apex with some spiculation. Additional 1.2 cm pleural-based density in the posterior medial left apex. He never followed up after this as he does not have medical insurance. 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 He was at work when he collapsed, states his left leg gave out. Over the last week he has been having shortness of breath, cough with yellow sputum, and fevers. No pleurisy. No hemoptysis. He has had reduced appetite and has not eaten much in the last 3 days. Denies nausea or vomiting. Denies diarrhea. Denies abdominal pain. Denies recent sick contacts. Denies recent travel. While in the emergency department did have a temperature of 103.2 F. He was tachycardic. Fluid resuscitated with a total of 2.5 L of lactated Ringer's. Chest x-ray showing a dense left retrocardiac opacity. CBC with a WBC count 11.15, hemoglobin 11.1, platelets 154. CMP with sodium 127, potassium 4.8, chloride 94, serum bicarb 18, BUN 55, creatinine 3.11, glucose 300. Lactic 1.7. Reportedly stopped taking his metformin due to lack of insurance. It also appears he sustained an acute kidney injury. Denies any urinary complaints. Viral 4 Plex negative for influenza A/B, RSV, COVID. He was empirically started on antibiotics in the form of Rocephin and azithromycin in the ED. Normal saline infusing at 100 mL/h. He has been seen on the medical floor. No acute distress. On room air. nontoxic appearance. Review of Systems REVIEW OF SYSTEMS: CONSTITUTIONAL: Denies any recent significant weight loss or weight gain. EYES: Denies change in vision. EARS, NOSE, MOUTH, THROAT: Denies headaches, denies sore throat. CARDIOVASCULAR: Denies chest pain, palpitations or syncopal episodes. RESPIRATORY: See HPI GASTROINTESTINAL: Reports reduced appetite. Denies abdominal pain, nausea and vomiting, or diarrhea GENITOURINARY: Denie dysuria, hematuria, urinary frequency MUSKULOSKELETAL: Denies pain, denies swelling. INTEGUMENTARY: Denies rash, denies eczema. NEUROLOGICAL: Denies recent memory loss, no recent seizure activity. PSYCHIATRIC: Denies anxiety, denies depression. HEMATOLOGIC/LYMPHATIC: Denies anemia, denies enlarged lymph node Past Medical History Past Medical History: COPD, Diabetes Mellitus, Hearing Disorder / Deafness History of Any Multi-Drug Resistant Organisms: None Reported Past Surgical History: No Surgical Hx Reported Past Anesthesia/Blood Transfusion Reactions: No Reported Reaction Additional Past Anesthesia/Blood Transfusion Reaction / Comment(s): na Past Psychological History: No Psychological Hx Reported Smoking Status: Current every day smoker Past Alcohol Use History: None Reported Past Drug Use History: Marijuana - Past Family History Father History Unknown: Yes Mother History Unknown: Yes Brother(s) History Unknown: Yes Medications and Allergies Home Medications Medication Instructions Recorded Confirmed Type No Known Home Medications 11/24/24 11/24/24 History Allergies Allergy/AdvReac Type Severity Reaction Status Date / Time No Known Allergies Allergy Verified 11/24/24 16:27 Physical Exam Vitals: Vital Signs Temp Pulse Pulse Resp BP BP Pulse Ox 11/24/24 20:00 16 11/24/24 19:34 97.5 F L 72 16 115/65 97 11/24/24 18:01 97.9 F 84 16 115/68 95 11/24/24 17:26 77 22 119/70 95 11/24/24 15:07 86 18 115/87 94 L 11/24/24 13:40 100.7 F H 106 H 20 138/72 95 11/24/24 13:15 22 11/24/24 12:43 103.2 F H 11/24/24 12:26 100.6 F H 131 H 20 156/79 95 Intake and Output 11/24/24 11/24/24 11/25/24 14:59 22:59 06:59 Other: # Bowel Movements 0 Weight 72.575 kg 72.575 kg GENERAL EXAM: Alert, 54-year-old male, comfortable in no apparent distress. HEAD: Normocephalic and atraumatic EYES: Normal reaction of pupils, equal size. No nystagmus. NOSE: Clear with pink turbinates. THROAT: No erythema or exudates. NECK: No masses, no JVD. CHEST: No chest wall deformity. LUNGS: Equal air entry with focal dullness at left base. No wheezing, rhonchi, crackles. On room air. No conversational dyspnea or accessory muscle use.. CVS: S1 and S2 normal with no audible murmur, regular rhythm. No extra heart sounds ABDOMEN: No hepatosplenomegaly, active bowel sounds, no guarding or rigidity. SPINE: No scoliosis or deformity. No CVA tenderness SKIN: No rashes CENTRAL NERVOUS SYSTEM: Alert and oriented x 3, cranial nerves II through XII intact, bilateral upper and lower extremity strength graded 5/5, no ataxia, patellar DTRs 2+. EXTREMITIES: There is no peripheral edema or cyanosis. Peripheral pulses are intact. Positive for digital clubbing. Results - Laboratory Findings CBC and BMP: 11/24/24 13:13 11/24/24 13:13 Abnormal lab findings: Abnormal Labs 11/24/24 11/24/24 11/24/24 13:13 13:13 18:24 WBC 11.15 H RBC 4.18 L Hgb 11.1 L Hct 32.4 L MCV 77.5 L MCH 26.6 L Immature Gran # 0.10 H Neutrophils # 10.04 H Lymphocytes # 0.58 L Eosinophils # 0.00 L Sodium 127 L Chloride 94 L Carbon Dioxide 18 L BUN 55 H Creatinine 3.11 H Glucose 300 H POC Glucose (mg/dL) 203 H Calcium 8.1 L AST 312 H ALT 85 H Albumin 3.1 L - Diagnostic Findings Chest x-ray: image reviewed Assessment and Plan Assessment: Community-acquired left lung pneumonia Acute dyspnea, secondary to above Acute febrile illness SIRS/sepsis criteria met Acute kidney injury Severe dehydration and reduced oral intake Anion gap metabolic acidosis Hyponatremia, hypovolemic Diabetes mellitus type 2, previously on metformin Current ongoing tobacco dependence, with over 37 pack years History of right upper lobe lung nodule, noted back on low-dose lung cancer screening Sep, 2023, measuring 1.2 x 1.9 cm oval density at the right lung apex with some spiculation. Additional 1.2 cm pleural-based density in the right posterior medial left apex. Patient has not had any follow-up due to lack of insurance Plan: Patient's medications, labs, chest x-ray reviewed Currently on room air Continue DuoNebs as needed As needed Tylenol for fever Continue antibiotics for community-acquired pneumonia including azithromycin and Rocephin Patient needs outpatient follow-up in regards to his lung nodules, especially considering his heavy tobacco use Ideally, would send patient for repeat lung CT with contrast, however, sustained acute kidney injury. Obtain urinalysis ,Continue IV maintenance fluids, Monitor renal function Smoking cessation counseling performed, Nicotine patch offered We will continue to follow I have personally seen and examined the patient, performed the documentation and the assessment and plan as written. Number of minutes spent on the visit:20 Time with Patient: Greater than 30
[2024-11-25 02:40] LABS: Amorphous Sediment,Urine Rare /hpf; Bilirubin,Urine Negative (Negative); Blood,Urine Large (Negative); Budding Yeast,Urine Few /hpf; Calcium Oxalate Crystals,Urine Rare /hpf; Color,Urine Light Red; Glucose,Urine (UA) Negative (Negative); Granular Casts,Urine 9 /lpf (0); Hyaline Casts,Urine 18 /lpf (0-2); Ketones,Urine Negative (Negative); Leukocyte Esterase,Urine Negative (Negative); Mucus,Urine Rare /hpf; Nitrite,Urine Negative (Negative); PH, Urine 5.5 (5.0-8.0); Protein,Urine 2+ (Negative); RBC,Urine 2 /hpf (0-5); Specific Gravity,Urine 1.015 (1.001-1.035); Squamous Epithelial Cell,Urine 1 /hpf (0-4); Urobilinogen,Urine <2.0 mg/dL (<2.0); WBC,Urine 5 /hpf (0-5)
[2024-11-25 06:58] LABS: Glucose,Whole Blood 83 mg/dL (70-110)
--- NOTE | 2024-11-25 07:37 | XR ---
EXAMINATION TYPE: XR chest 2V DATE OF EXAM: 11/25/2024 6:42 AM COMPARISON: 11/24/2024 CLINICAL INDICATION: Male, 54 years old with history of pneumonia, , TECHNIQUE: PA and lateral views FINDINGS: Heart upper limits of normal in size. Hyperinflation. There is ongoing and worsening retrocardiac and left basilar airspace disease. No pleural effusion. IMPRESSION: COPD with worsening left basilar pneumonia. [facility], Workstation: [email or web address], 11/25/2024 7:34 AM
--- NOTE | 2024-11-25 09:24 | CT ---
EXAMINATION TYPE: CT chest wo con DATE OF EXAM: 11/25/2024 9:16 AM COMPARISON: 09/26/2023 and radiograph same day CLINICAL INDICATION: Male, 54 years old with history of mass like consolidation TECHNIQUE: CT of the chest without IV contrast. Coronal and sagittal reconstructions performed. CT DLP: 268.20 mGycm, Automated exposure control for dose reduction was used. FINDINGS: Heart normal size with trace anterior pericardial fluid. Mild RCA coronary artery calcifications are present. Aorta normal caliber with minimal atherosclerotic arch calcifications and bovine configuration to the aortic arch. Scattered nonenlarged mediastinal lymph nodes are present. There is extensive consolidation throughout the basilar left lower lobe and additional groundglass ai rspace disease throughout the remainder of the left lower lobe and also in the periphery of the infer ior lingula and basilar right middle lobe. Scattered small patches of groundglass elsewhere throughou t the mid and lower lungs. Background moderate emphysematous changes and biapical pleural parenchymal scarring. No discrete mass is clearly identified. Trace left pleural effusion. Visualized upper abdomen shows no gross abnormalities. Bones: DISH lower thoracic spine. IMPRESSION: 1. Extensive left lower lobe consolidation. Additional scattered bilateral patchy groundglass changes . Correlate for multifocal pneumonia, most extensively involving the left lower lobe. No well-defined mass is identified. Follow-up to ensure complete clearance. 2. Trace left-sided parapneumonic effusion. 3. Background COPD with moderate emphysema. [facility], , 11/25/2024 9:22 AM
[2024-11-25] MEDS: NICOTINE 21MG/24HR PATCH TRANSDERM SCH (10:19)
[2024-11-25 10:35] LABS: ALT 74 U/L (10-49); AST 200 U/L (14-35); Albumin 2.4 g/dL (3.8-4.9); Albumin/Globulin Ratio 0.96 Ratio (1.60-3.17); Alkaline Phosphatase 70 U/L (41-126); Anion Gap 14.30 mmol/L (4.00-12.00); BUN/Creat Ratio 18.97 Ratio (12.00-20.00); Blood Urea Nitrogen 55.0 mg/dL (9.0-27.0); Calcium 7.0 mg/dL (8.7-10.3); Carbon Dioxide 18.7 mmol/L (21.6-31.8); Chloride 103 mmol/L (96-109); Ferritin 1358.0 ng/mL (22.0-322.0); Globulin 2.5 g/dL (1.6-3.3); Glucose 87 mg/dL (70-110); Iron 7 UG/DL (65-175); Potassium 3.7 mmol/L (3.5-5.5); Sodium 136 mmol/L (135-145); Total Iron Binding Capacity 133 UG/DL (228-460); Total Protein 4.9 g/dL (6.2-8.2)
[2024-11-25 11:07] LABS: HCT 33.8 % (39.6-50.0); HGB 10.8 g/dL (13.0-17.0); MCH 25.6 pg (27.0-32.0); MCHC 32.0 g/dL (32.0-37.0); MCV 80.1 FL (80.0-97.0); NRBC Per 100 WBC 0 X 10*3/uL (0.00-0.01); Platelet Count 116 X 10*3/uL (140-440); RBC 4.22 X 10*6/uL (4.40-5.60); RDW 14.5 % (11.5-14.5); WBC 7.18 X 10*3/uL (4.50-10.00)
--- NOTE | 2024-11-25 11:45 | P.PN ---
Subjective Progress Note Date: 11/25/24 54 year old M with PMH of DM presents to the ED. He complains of cough productive of yellow sputum, exertional shortness of breath that has been progressively getting worse over the past 3 weeks. He did experience a fall today as his left leg gave out. He attributes the fall to chronic back issues. Smokes 1 PPD since age 16. Reports poor oral intake for the last 4 days. No fever or chills. No chest pain. No sick contacts. In the ED he underwent extensive evaluation. Tmax 103.2F, RR 22, HR 131, BP 156/79, 95% on RA. CBC, CMP significant for WBC 11.15, RBC 4.18, Hg 11.1, Hct 32.4, MCV 77.5, Na 127, Cl 94, bicarb 18, BUN 55, Cr 3.11, glu 300, Ca 8.1, AST 312, ALT 85, alb 3.1. Flu, RSV, COVID neg. CXR sinsu tachycardia rate of 120. CXR large left basilar PNA. Patient is admitted for further workup and management. Started on Rocephin + Azithromycin. 11/25 Patient was seen and examined. Reports no changes clinically. Currently on RA. Maintained on NS at 75 cc/hr. Antibiotics include Rocephin 2g IV QD + Azithromycin 500 mg PO QD (D2). Renal US shows no obstruction. Chest CT shows LLL consolidation with scattered bilateral groundglass changes, trace L parapnemonic effusion, COPD changes. CBC, CMP significant for RBC 4.22, Hg 10.8, Hct 33.8, bicarb 18.7, AG 14.3, BUN 55, Cr 2.9, T. Bili < 0.2, AST 200, ALT 74, alb 2.4. Fe 7, Ferritin 1358. A1c 9.2. UA large blood with 2 RBCs. General: non toxic, no distress, appears at stated age Derm: warm, dry Head: atraumatic, normocephalic, symmetric Eyes: EOMI, no lid lag, anicteric sclera Mouth: no lip lesion, mucus membranes moist Cardiovascular: S1S2 reg, no murmur Lungs: L side rhonchi with scattered wheezing bilateral, no rales , no accessory muscle use Ext: no gross muscle atrophy, no edema, no contractures Neuro: no focal neuro deficits Psych: Alert and oriented. Based on my assessment of this patient, this patient meets a high complexity level of care. Sepsis secondary to community acquired PNA: Tachycardia with elevated RR and + source of infection. Continue Rocephin 2g IV QD + Azithromycin 500 mg PO QD. Mucinex 600 mg PO BID. Tylenol 650 mg PO Q6H PRN. DuoNeb QID scheduled and Q2H PRN SOB/wheezing. NS at 100 cc/hr. Telemetry monitoring. Obtain Legionella Ag, Sputum + BCx. Pulmonary on board. LOUISE with metabolic acidosis: Prerenal. No obstruction. Large blood seen on UA with 2 RBCs, obtain creatine kinase level. IV hydration as above. Trend. Renal consult. DM with hyperglycemia: A1c 9.2. Continue CECILY + Accuchecks ACHS along with hypoglycemic precautions. Microcytic anemia: Fe studies consistent with AOCD. Transfuse if Hg < 7. Transaminitis: Unknown etiology. Improving. Repeat in the AM. Fall: Fall precautions. PT and OT consult. Resolved: HypoNa CODE STATUS: FULL CODE. DVT Prophylaxis: Heparin SQ GI Prophylaxis: Designated medical POA if patient is not able to make medical decisions for themselves: Son I have reviewed the following consultant rn notes: Pulmonary note I have reviewed the results of the following tests: CBC, CMP, A1c, Iron studies, UA. I have ordered the following tests: CBC and CMP in the AM. CK ordered. Sputum, Legionella, BCx pending. I have discussed the care of this patient with the following independent historian: GUILLERMINA. I have independently interpreted the following test below: Chest CT I have discussed the management of this patient with the following physician: Objective - Vital Signs Vital signs: Vital Signs Temp 97.8 F 11/25/24 06:51 Pulse 79 11/25/24 08:00 Resp 20 11/25/24 06:51 BP 118/78 11/25/24 06:51 Pulse Ox 97 11/25/24 06:51 FiO2 Intake & Output 11/24/24 11/25/24 11/25/24 18:59 06:59 18:59 Weight 72.575 kg Other: # Voids 1 # Bowel Movements 0 - Labs CBC & Chem 7: 11/25/24 06:20 11/25/24 06:20 Labs: Abnormal Lab Results - Last 24 Hours (Table) 11/24/24 11/24/24 11/24/24 Range/Units 13:13 13:13 18:24 WBC 11.15 H (4.50-10.00) 10*3/uL RBC 4.18 L (4.40-5.60) 10*6/uL Hgb 11.1 L (13.0-17.0) g/dL Hct 32.4 L (39.6-50.0) % MCV 77.5 L (80.0-97.0) fL MCH 26.6 L (27.0-32.0) pg Plt Count (140-440) X 10*3/uL Immature Gran # 0.10 H (0.00-0.04) 10*3/uL Neutrophils # 10.04 H (1.80-7.70) 10*3/uL Lymphocytes # 0.58 L (0.90-5.00) 10*3/uL Eosinophils # 0.00 L (0.04-0.35) 10*3/uL Sodium 127 L (137-145) mmol/L Chloride 94 L (98-107) mmol/L Carbon Dioxide 18 L (22-30) mmol/L Anion Gap (4.00-12.00) mmol/L BUN 55 H (9-20) mg/dL Creatinine 3.11 H (0.66-1.25) mg/dL Est GFR (CKD-EPI) (>=60) Glucose 300 H (74-99) mg/dL POC Glucose (mg/dL) 203 H (70-110) mg/dL Hemoglobin A1c (<=6.0) % Calcium 8.1 L (8.4-10.2) mg/dL Iron (65-175) UG/DL TIBC (228-460) UG/DL % Saturation (15.00-50.00) Transferrin (204.0-354.0) mg/dL Ferritin (22.0-322.0) ng/mL Total Bilirubin (0.3-1.2) mg/dL AST 312 H (17-59) U/L ALT 85 H (4-49) U/L Total Protein (6.2-8.2) g/dL Albumin 3.1 L (3.5-5.0) g/dL Albumin/Globulin Ratio (1.60-3.17) Ratio Urine Protein (Negative) Urine Blood (Negative) Calcium Oxalate Crystal (None) /hpf Amorphous Sediment (None) /hpf Hyaline Casts (0-2) /lpf Urine Mucus (None) /hpf Urine Yeast (Budding) (None) /hpf 11/25/24 11/25/24 11/25/24 Range/Units 02:10 06:20 06:20 WBC (4.50-10.00) 10*3/uL RBC 4.22 L (4.40-5.60) 10*6/uL Hgb 10.8 L (13.0-17.0) g/dL Hct 33.8 L (39.6-50.0) % MCV (80.0-97.0) fL MCH 25.6 L (27.0-32.0) pg Plt Count 116 L (140-440) X 10*3/uL Immature Gran # (0.00-0.04) 10*3/uL Neutrophils # (1.80-7.70) 10*3/uL Lymphocytes # (0.90-5.00) 10*3/uL Eosinophils # (0.04-0.35) 10*3/uL Sodium (137-145) mmol/L Chloride (98-107) mmol/L Carbon Dioxide (22-30) mmol/L Anion Gap (4.00-12.00) mmol/L BUN (9-20) mg/dL Creatinine (0.66-1.25) mg/dL Est GFR (CKD-EPI) (>=60) Glucose (74-99) mg/dL POC Glucose (mg/dL) (70-110) mg/dL Hemoglobin A1c 9.2 H (<=6.0) % Calcium (8.4-10.2) mg/dL Iron (65-175) UG/DL TIBC (228-460) UG/DL % Saturation (15.00-50.00) Transferrin (204.0-354.0) mg/dL Ferritin (22.0-322.0) ng/mL Total Bilirubin (0.3-1.2) mg/dL AST (17-59) U/L ALT (4-49) U/L Total Protein (6.2-8.2) g/dL Albumin (3.5-5.0) g/dL Albumin/Globulin Ratio (1.60-3.17) Ratio Urine Protein 2+ H (Negative) Urine Blood Large H (Negative) Calcium Oxalate Crystal Rare H (None) /hpf Amorphous Sediment Rare H (None) /hpf Hyaline Casts 18 H (0-2) /lpf Urine Mucus Rare H (None) /hpf Urine Yeast (Budding) Few H (None) /hpf 11/25/24 Range/Units 06:20 WBC (4.50-10.00) 10*3/uL RBC (4.40-5.60) 10*6/uL Hgb (13.0-17.0) g/dL Hct (39.6-50.0) % MCV (80.0-97.0) fL MCH (27.0-32.0) pg Plt Count (140-440) X 10*3/uL Immature Gran # (0.00-0.04) 10*3/uL Neutrophils # (1.80-7.70) 10*3/uL Lymphocytes # (0.90-5.00) 10*3/uL Eosinophils # (0.04-0.35) 10*3/uL Sodium (137-145) mmol/L Chloride (98-107) mmol/L Carbon Dioxide 18.7 L (22-30) mmol/L Anion Gap 14.30 H (4.00-12.00) mmol/L BUN 55.0 H (9-20) mg/dL Creatinine 2.9 H (0.66-1.25) mg/dL Est GFR (CKD-EPI) 25 L (>=60) Glucose (74-99) mg/dL POC Glucose (mg/dL) (70-110) mg/dL Hemoglobin A1c (<=6.0) % Calcium 7.0 L (8.4-10.2) mg/dL Iron 7 L (65-175) UG/DL TIBC 133 L (228-460) UG/DL % Saturation 5.26 L (15.00-50.00) Transferrin 94.9 L (204.0-354.0) mg/dL Ferritin 1358.0 H (22.0-322.0) ng/mL Total Bilirubin <0.2 L (0.3-1.2) mg/dL AST 200 H (17-59) U/L ALT 74 H (4-49) U/L Total Protein 4.9 L (6.2-8.2) g/dL Albumin 2.4 L (3.5-5.0) g/dL Albumin/Globulin Ratio 0.96 L (1.60-3.17) Ratio Urine Protein (Negative) Urine Blood (Negative) Calcium Oxalate Crystal (None) /hpf Amorphous Sediment (None) /hpf Hyaline Casts (0-2) /lpf Urine Mucus (None) /hpf Urine Yeast (Budding) (None) /hpf
[2024-11-25 11:54] LABS: Glucose,Whole Blood 97 mg/dL (70-110)
[2024-11-25 11:59] LABS: Basophils # (A) 0.08 X 10*3/uL (0.00-0.10); Basophils % (A) 1.1 %; Eosinophils # (A) 0.01 X 10*3/uL (0.04-0.35); Eosinophils % (A) 0.1 %; Immature Grans, Automated 1.00 %; Lymphocytes # (A) 0.53 X 10*3/uL (0.90-5.00); Lymphocytes % (A) 7.4 %; Monocytes # (A) 0.18 X 10*3/uL (0.20-1.00); Monocytes % (A) 2.5 %; Neutrophils # (A) 6.31 X 10*3/uL (1.80-7.70); Neutrophils % (A) 87.9 %; RBC Morphology Normal (Normal)
[2024-11-25] MEDS: ACETAMINOPHEN TAB 325 MG TAB PO PRN (13:04)
[2024-11-25] MEDS: AZITHROMYCIN 500 MG TAB PO SCH (15:15)
[2024-11-25 17:07] LABS: Glucose,Whole Blood 151 mg/dL (70-110)
[2024-11-25 19:42] VITALS: RESP 16
[2024-11-25 20:29] LABS: Glucose,Whole Blood 78 mg/dL (70-110)
[2024-11-26 00:57] LABS: Glucose,Whole Blood 96 mg/dL (70-110)
[2024-11-26 06:25] LABS: HCT 28.5 % (39.6-50.0); HGB 9.7 g/dL (13.0-17.0); Immature Platelet Fraction 11.5 % (1.1-6.1); MCH 26.4 pg (27.0-32.0); MCHC 34.0 g/dL (32.0-37.0); MCV 77.7 fL (80.0-97.0); Platelet Count 119 10*3/uL (140-440); RBC 3.67 10*6/uL (4.40-5.60); RDW 14.1 % (11.5-14.5); WBC 7.57 10*3/uL (4.50-10.00)
[2024-11-26 06:41] LABS: African American GFR (CKD) 48 (>60 ml/min/1.73 sqM); Anion Gap 8 mmol/L; Blood Urea Nitrogen 39 mg/dL (9-20); Calcium 7.3 mg/dL (8.4-10.2); Carbon Dioxide 19 mmol/L (22-30); Chloride 106 mmol/L (98-107); Glucose 54 mg/dL (74-99); Non-African American GFR(CKD) 42 (>60 ml/min/1.73 sqM); Potassium 3.3 mmol/L (3.5-5.1); Sodium 133 mmol/L (137-145)
[2024-11-26 06:53] LABS: Glucose,Whole Blood 72 mg/dL (70-110)
[2024-11-26] MEDS: POTASSIUM CHLORIDE ER 20 MEQ TAB.ER PO STA (08:47)
[2024-11-26] MEDS: LEVOFLOXACIN 750MG-D5W PMX 750 MG in DEXTROSE/WATER 1 150ML.BAG IVPB SCH (09:57)
--- NOTE | 2024-11-26 10:44 | P.PN ---
Subjective Progress Note Date: 11/26/24 54 year old M with PMH of DM presents to the ED. He complains of cough productive of yellow sputum, exertional shortness of breath that has been progressively getting worse over the past 3 weeks. He did experience a fall today as his left leg gave out. He attributes the fall to chronic back issues. Smokes 1 PPD since age 16. Reports poor oral intake for the last 4 days. No fever or chills. No chest pain. No sick contacts. In the ED he underwent extensive evaluation. Tmax 103.2F, RR 22, HR 131, BP 156/79, 95% on RA. CBC, CMP significant for WBC 11.15, RBC 4.18, Hg 11.1, Hct 32.4, MCV 77.5, Na 127, Cl 94, bicarb 18, BUN 55, Cr 3.11, glu 300, Ca 8.1, AST 312, ALT 85, alb 3.1. Flu, RSV, COVID neg. CXR sinsu tachycardia rate of 120. CXR large left basilar PNA. Patient is admitted for further workup and management. Started on Rocephin + Azithromycin. 11/25 Patient was seen and examined. Reports no changes clinically. Currently on RA. Maintained on NS at 75 cc/hr. Antibiotics include Rocephin 2g IV QD + Azithromycin 500 mg PO QD (D2). Renal US shows no obstruction. Chest CT shows LLL consolidation with scattered bilateral groundglass changes, trace L parapnemonic effusion, COPD changes. CBC, CMP significant for RBC 4.22, Hg 10.8, Hct 33.8, bicarb 18.7, AG 14.3, BUN 55, Cr 2.9, T. Bili < 0.2, AST 200, ALT 74, alb 2.4. Fe 7, Ferritin 1358. A1c 9.2. UA large blood with 2 RBCs. 11/26 Patient was seen and examined. Doing well. No complaints today. Wants to go home soon. Currently on RA. Maintained on NS at 100 cc/hr. Antibiotics include Rocephin 2g IV QD + Azithromycin 500 mg PO QD (D3). Renal US shows no obstruction. Legionella Ag is positive. CBC, CMP significant for RBC 3.67, Hg 9.7, Hct 28.5, Na 133, K 3.3, bicarb 19, BUN 39, Cr 1.79, glu 54. Mag 2. CK 7028. General: non toxic, no distress, appears at stated age Derm: warm, dry Head: atraumatic, normocephalic, symmetric Eyes: EOMI, no lid lag, anicteric sclera Mouth: no lip lesion, mucus membranes moist Cardiovascular: S1S2 reg, no murmur Lungs: L side rhonchi with scattered wheezing bilateral, no rales , no accessory muscle use Ext: no gross muscle atrophy, no edema, no contractures Neuro: no focal neuro deficits Psych: Alert and oriented. Based on my assessment of this patient, this patient meets a high complexity l evel of care. Sepsis secondary to Legionella PNA: Tachycardia with elevated RR and + source of infection. Switch Rocephin 2g IV QD + Azithromycin 500 mg PO QD to Levaquin 750 mg IV QD. Mucinex 600 mg PO BID. Tylenol 650 mg PO Q6H PRN. DuoNeb QID scheduled and Q2H PRN SOB/wheezing. NS at 100 cc/hr. Telemetry monitoring. Pulmonary on board. LOUISE with metabolic acidosis and hypoNa due to rhabdomyolysis: No obstruction. IV hydration as above. Trend. Nephrology consult. HypoK: KCl 40 meq PO x 1. Check Mag. Trend. DM with hypoglycemia: A1c 9.2. Continue CECILY + Accuchecks ACHS along with hypoglycemic precautions. Microcytic anemia: Fe studies consistent with AOCD. Transfuse if Hg < 7. Transaminitis: Unknown etiology. Improving. Fall: Fall precautions. PT and OT consult. CODE STATUS: FULL CODE. DVT Prophylaxis: Heparin SQ GI Prophylaxis: Designated medical POA if patient is not able to make medical decisions for themselves: Son I have reviewed the following field technical support consultant notes: I have reviewed the results of the following tests: CBC, BMP, Mag, CK, Legionella I have ordered the following tests: CBC and BMP in the AM. I have discussed the care of this patient with the following independent historian: I have independently interpreted the following test below: I have discussed the management of this patient with the following physician: Objective - Vital Signs Vital signs: Vital Signs Temp 98.4 F 11/26/24 06:49 Pulse 86 11/26/24 06:49 Resp 16 11/26/24 06:49 BP 147/75 11/26/24 06:49 Pulse Ox 98 11/26/24 06:49 FiO2 Intake & Output 11/25/24 11/26/24 11/26/24 18:59 06:59 18:59 Intake Total 1160 118 Balance 1160 118 Intake: Oral 1160 118 Other: Voiding Method Toilet Toilet # Voids 4 3 - Labs CBC & Chem 7: 11/26/24 05:19 11/26/24 05:19 Labs: Abnormal Lab Results - Last 24 Hours (Table) 11/25/24 11/25/24 11/25/24 Range/Units 02:10 06:20 06:20 RBC 4.22 L (4.40-5.60) X 10*6/uL Hgb 10.8 L (13.0-17.0) g/dL Hct 33.8 L (39.6-50.0) % MCV (80.0-97.0) fL MCH 25.6 L (27.0-32.0) pg Plt Count 116 L (140-440) X 10*3/uL MPV (9.5-12.2) fL Immature Gran # 0.07 H (0.00-0.04) X 10*3/uL Lymphocytes # 0.53 L (0.90-5.00) X 10*3/uL Monocytes # 0.18 L (0.20-1.00) X 10*3/uL Eosinophils # 0.01 L (0.04-0.35) X 10*3/uL Immature Plt Fraction (1.1-6.1) % Sodium (137-145) mmol/L Potassium (3.5-5.1) mmol/L Carbon Dioxide (22-30) mmol/L BUN (9-20) mg/dL Creatinine (0.66-1.25) mg/dL Glucose (74-99) mg/dL POC Glucose (mg/dL) (70-110) mg/dL Hemoglobin A1c 9.2 H (<=6.0) % Calcium (8.4-10.2) mg/dL Creatine Kinase (35-257) U/L Urine Legionella Ag Positive A (Negative) 11/25/24 11/25/24 11/26/24 Range/Units 06:20 17:06 05:19 RBC 3.67 L (4.40-5.60) X 10*6/uL Hgb 9.7 L (13.0-17.0) g/dL Hct 28.5 L (39.6-50.0) % MCV 77.7 L (80.0-97.0) fL MCH 26.4 L (27.0-32.0) pg Plt Count 119 L (140-440) X 10*3/uL MPV 12.9 H (9.5-12.2) fL Immature Gran # (0.00-0.04) X 10*3/uL Lymphocytes # (0.90-5.00) X 10*3/uL Monocytes # (0.20-1.00) X 10*3/uL Eosinophils # (0.04-0.35) X 10*3/uL Immature Plt Fraction 11.5 H (1.1-6.1) % Sodium (137-145) mmol/L Potassium (3.5-5.1) mmol/L Carbon Dioxide (22-30) mmol/L BUN (9-20) mg/dL Creatinine (0.66-1.25) mg/dL Glucose (74-99) mg/dL POC Glucose (mg/dL) 151 H (70-110) mg/dL Hemoglobin A1c (<=6.0) % Calcium (8.4-10.2) mg/dL Creatine Kinase 7028 H (35-257) U/L Urine Legionella Ag (Negative) 11/26/24 Range/Units 05:19 RBC (4.40-5.60) X 10*6/uL Hgb (13.0-17.0) g/dL Hct (39.6-50.0) % MCV (80.0-97.0) fL MCH (27.0-32.0) pg Plt Count (140-440) X 10*3/uL MPV (9.5-12.2) fL Immature Gran # (0.00-0.04) X 10*3/uL Lymphocytes # (0.90-5.00) X 10*3/uL Monocytes # (0.20-1.00) X 10*3/uL Eosinophils # (0.04-0.35) X 10*3/uL Immature Plt Fraction (1.1-6.1) % Sodium 133 L (137-145) mmol/L Potassium 3.3 L (3.5-5.1) mmol/L Carbon Dioxide 19 L (22-30) mmol/L BUN 39 H (9-20) mg/dL Creatinine 1.79 H (0.66-1.25) mg/dL Glucose 54 L (74-99) mg/dL POC Glucose (mg/dL) (70-110) mg/dL Hemoglobin A1c (<=6.0) % Calcium 7.3 L (8.4-10.2) mg/dL Creatine Kinase (35-257) U/L Urine Legionella Ag (Negative) Microbiology - Last 24 Hours (Table) 11/25/24 14:36 Gram Stain - Preliminary Sputum Sputum Culture - Preliminary 11/24/24 13:13 Blood Culture - Preliminary Blood
[2024-11-26 12:14] LABS: Glucose,Whole Blood 180 mg/dL (70-110)
[2024-11-26 12:18] VITALS: BP 132/70; PULSE 91; TEMP 99.7
--- NOTE | 2024-11-26 13:43 | P.PN ---
Subjective Progress Note Date: 11/26/24 Patient is a 54-year-old male who is a heavy tobacco smoker, current 1 pack/day, with 71-[id number]-ltee history. Denies history of COPD or asthma. Did have a low- dose lung cancer screening Sep, 2023 remarkable for 1.2 x 1.9 cm oval density at the right apex with some spiculation. Additional 1.2 cm pleural-based density in the posterior medial left apex. He never followed up after this as he does not have medical insurance. 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 He was at work when he collapsed, states his left leg gave out. Over the last week he has been having shortness of breath, cough with yellow sputum, and fevers. No pleurisy. No hemoptysis. He has had reduced appetite and has not eaten much in the last 3 days. Denies nausea or vomiting. Denies diarrhea. Denies abdominal pain. Denies recent sick contacts. Denies recent travel. While in the emergency department did have a temperature of 103.2 F. He was tachycardic. Fluid resuscitated with a total of 2.5 L of lactated Ringer's. Chest x-ray showing a dense left retrocardiac opacity. CBC with a WBC count 11.15, hemoglob in 11.1, platelets 154. CMP with sodium 127, potassium 4.8, chloride 94, serum bicarb 18, BUN 55, creatinine 3.11, glucose 300. Lactic 1.7. Reportedly stopped taking his metformin due to lack of insurance. It also appears he sustained an acute kidney injury. Denies any urinary complaints. Viral 4 Plex negative for influenza A/B, RSV, COVID. He was empirically started on antibiotics in the form of Rocephin and azithromycin in the ED. Normal saline infusing at 100 mL/h. He has been seen on the medical floor. No acute distress. On room air. nontoxic appearance. The patient is seen today November 26, 2024 in follow-up on the regular medical floor. He is currently sitting up at the bedside. Awake and alert in no acute distress. He is breathing a bit better today compared to yesterday. Maintaining good O2 saturations in the upper 90s on room air oxygen. Afebrile. Hemodynamically stable. Sputum culture pending. Blood culture pending. White count 7.5. Hemoglobin 9.7. Platelets 119. Sodium 133. Potassium 3.3. Bicarb 19. BUN 39. Creatinine 1.79. Glucose 180. Urine Legionella antigen is positive. His antibiotics have been switched to Levaquin. He remains on heparin for DVT prophylaxis. Continued on DuoNeb inhalations, Symbicort. NicoDerm patch in place. 0.9 normal saline at 100 mL/h. Objective - Vital Signs Vital signs: Vital Signs Temp 99.7 F H 11/26/24 12:18 Pulse 91 11/26/24 12:18 Resp 16 11/26/24 12:18 BP 132/70 11/26/24 12:18 Pulse Ox 98 11/26/24 12:18 FiO2 Intake & Output 11/25/24 11/26/24 11/26/24 18:59 06:59 18:59 Intake Total 1160 118 Balance 1160 118 Intake: Oral 1160 118 Other: Voiding Method Toilet Toilet # Voids 4 3 - Exam GENERAL EXAM: Alert, pleasant 54-year-old male, sitting up at the bedside, on room air oxygen, comfortable in no apparent distress. HEAD: Normocephalic and atraumatic EYES: Normal reaction of pupils, equal size. No nystagmus. NOSE: Clear with pink turbinates. THROAT: No erythema or exudates. NECK: No masses, no JVD. CHEST: No chest wall deformity. LUNGS: Equal air entry with focal dullness at left base. No wheezing, rhonchi, crackles. No conversational dyspnea or accessory muscle use.. CVS: S1 and S2 normal with no audible murmur, regular rhythm. No extra heart sounds ABDOMEN: No hepatosplenomegaly, active bowel sounds, no guarding or rigidity. SPINE: No scoliosis or deformity. No CVA tenderness SKIN: No rashes CENTRAL NERVOUS SYSTEM: Alert and oriented x 3, cranial nerves II through XII intact, bilateral upper and lower extremity strength graded 5/5, no ataxia, patellar DTRs 2+. EXTREMITIES: There is no peripheral edema or cyanosis. Peripheral pulses are intact. Positive for digital clubbing. - Labs CBC & Chem 7: 11/26/24 05:19 11/26/24 05:19 Labs: Abnormal Lab Results - Last 24 Hours (Table) 11/25/24 11/25/24 11/25/24 Range/Units 02:10 06:20 17:06 RBC (4.40-5.60) 10*6/uL Hgb (13.0-17.0) g/dL Hct (39.6-50.0) % MCV (80.0-97.0) fL MCH (27.0-32.0) pg Plt Count (140-440) 10*3/uL MPV (9.5-12.2) fL Immature Plt Fraction (1.1-6.1) % Sodium (137-145) mmol/L Potassium (3.5-5.1) mmol/L Carbon Dioxide (22-30) mmol/L BUN (9-20) mg/dL Creatinine (0.66-1.25) mg/dL Glucose (74-99) mg/dL POC Glucose (mg/dL) 151 H (70-110) mg/dL Calcium (8.4-10.2) mg/dL Creatine Kinase 7028 H (35-257) U/L Urine Legionella Ag Positive A (Negative) 11/26/24 11/26/24 11/26/24 Range/Units 05:19 05:19 12:11 RBC 3.67 L (4.40-5.60) 10*6/uL Hgb 9.7 L (13.0-17.0) g/dL Hct 28.5 L (39.6-50.0) % MCV 77.7 L (80.0-97.0) fL MCH 26.4 L (27.0-32.0) pg Plt Count 119 L (140-440) 10*3/uL MPV 12.9 H (9.5-12.2) fL Immature Plt Fraction 11.5 H (1.1-6.1) % Sodium 133 L (137-145) mmol/L Potassium 3.3 L (3.5-5.1) mmol/L Carbon Dioxide 19 L (22-30) mmol/L BUN 39 H (9-20) mg/dL Creatinine 1.79 H (0.66-1.25) mg/dL Glucose 54 L (74-99) mg/dL POC Glucose (mg/dL) 180 H (70-110) mg/dL Calcium 7.3 L (8.4-10.2) mg/dL Creatine Kinase (35-257) U/L Urine Legionella Ag (Negative) Microbiology - Last 24 Hours (Table) 11/25/24 14:36 Gram Stain - Preliminary Sputum Sputum Culture - Preliminary 11/24/24 13:13 Blood Culture - Preliminary Blood Assessment and Plan Assessment: Community-acquired left lung pneumonia, positive for legionnaire's pneumonia. CT scan revealed extensive left lower lobe consolidation. Additional scattered patchy bilateral groundglass changes. Consistent with pneumonia. Antibiotics changed to Levaquin Acute dyspnea, secondary to above Acute febrile illness SIRS/sepsis criteria met Acute kidney injury Severe dehydration and reduced oral intake Anion gap metabolic acidosis Hyponatremia, hypovolemic Transaminitis Diabetes mellitus type 2, previously on metformin Current ongoing tobacco dependence, with over 37 pack years Chronic obstructive pulmonary disease with moderate emphysema per CT scan History of right upper lobe lung nodule, noted back on low-dose lung cancer screening Sep, 2023, measuring 1.2 x 1.9 cm oval density at the right lung apex with some spiculation. Additional 1.2 cm pleural-based density in the right posterior medial left apex. Patient has not had any follow-up due to lack of insurance. CT scan of the chest this admission revealed no well-defined mass is identified Plan: The patient was seen and evaluated Imaging, labs and medications reviewed Positive for Legionella pneumonia Antibiotics changed to Levaquin Stable and on room air oxygen Add incentive spirometer Educated regarding complete smoking cessation NicoDerm patch in place Continue DuoNeb inhalations Continue Symbicort Continue Mucinex Heparin for DVT prophylaxis Increase his activity as tolerated We will continue to follow I have personally seen and examined the patient, performed the documentation and the assessment and plan as written. Number of minutes spent on the visit: 10 Dictation was produced using [employer] dictation software. Please excuse any grammatical, word or spelling errors.
[2024-11-26 14:46] VITALS: BMI 27.4
--- NOTE | 2024-11-26 15:27 | P.DS ---
Providers Date of admission: 11/24/24 15:45 Expected date of discharge: 11/26/24 Attending physician: Wesley Viveros Consults: 11/24/24 16:56 Consult Physician Routine Consulting Provider: Tomasa Rehman Consult Reason/Comments: PNA COPD Do you want consulting provider notified?: Yes 11/25/24 11:38 Consult Physician Routine Consulting Provider: Bess Valle Consult Reason/Comments: LOUISE Do you want consulting provider notified?: Yes Primary care physician: Rahat Medina Hospital Course: 54 year old M with PMH of DM presents to the ED. He complains of cough productive of yellow sputum, exertional shortness of breath that has been progressively getting worse over the past 3 weeks. He did experience a fall today as his left leg gave out. He attributes the fall to chronic back issues. Smokes 1 PPD since age 16. Reports poor oral intake for the last 4 days. No fever or chills. No chest pain. No sick contacts. In the ED he underwent extensive evaluation. Tmax 103.2F, RR 22, HR 131, BP 156/79, 95% on RA. CBC, CMP significant for WBC 11.15, RBC 4.18, Hg 11.1, Hct 32.4, MCV 77.5, Na 127, Cl 94, bicarb 18, BUN 55, Cr 3.11, glu 300, Ca 8.1, AST 312, ALT 85, alb 3.1. Flu, RSV, COVID neg. CXR sinsu tachycardia rate of 120. CXR large left basilar PNA. Patient is admitted for further workup and management. Started on Rocephin + Azithromycin. 11/25 Patient was seen and examined. Reports no changes clinically. Currently on RA. Maintained on NS at 75 cc/hr. Antibiotics include Rocephin 2g IV QD + Azithromycin 500 mg PO QD (D2). Renal US shows no obstruction. Chest CT shows LLL consolidation with scattered bilateral groundglass changes, trace L parapnemonic effusion, COPD changes. CBC, CMP significant for RBC 4.22, Hg 10.8, Hct 33.8, bicarb 18.7, AG 14.3, BUN 55, Cr 2.9, T. Bili < 0.2, AST 200, ALT 74, alb 2.4. Fe 7, Ferritin 1358. A1c 9.2. UA large blood with 2 RBCs. 11/26 Patient was seen and examined. Doing well. No complaints today. Wants to go home soon. Currently on RA. Maintained on NS at 100 cc/hr. Antibiotics include Rocephin 2g IV QD + Azithromycin 500 mg PO QD (D3). Renal US shows no obstruction. Legionella Ag is positive. CBC, CMP significant for RBC 3.67, Hg 9.7, Hct 28.5, Na 133, K 3.3, bicarb 19, BUN 39, Cr 1.79, glu 54. Mag 2. CK 7028. Discharge Plan: Discussed with Frances CALVILLO, cleared for discharge from pulmonary standpoint. Plans for Azithromycin 500 mg PO QD x 7 days (total 10 days antibiotics). Advised patient he will need to follow up with PCP next week to monitor his renal function and follow up with Dr. Rehman in 2 weeks for evaluation of pulmonary nodule and resolution of PNA. Encouraged hydration by mouth. Encouraged age appropriate cancer screening including C-scope. Patient verbalized understanding of the plan. General: non toxic, no distress, appears at stated age Derm: warm, dry Head: atraumatic, normocephalic, symmetric Eyes: EOMI, no lid lag, anicteric sclera Mouth: no lip lesion, mucus membranes moist Cardiovascular: S1S2 reg, no murmur Lungs: L side rhonchi with scattered wheezing bilateral, no rales , no accessory muscle use Ext: no gross muscle atrophy, no edema, no contractures Neuro: no focal neuro deficits Psych: Alert and oriented. Discharge Diagnosis: Sepsis secondary to Legionella PNA LOUISE with metabolic acidosis and hypoNa due to rhabdomyolysis HypoK DM with hypoglycemia Microcytic anemia Transaminitis Fall This complex discharge took 35 minutes to complete. Patient Condition at Discharge: Stable Plan - Discharge Summary Discharge Rx Participant: Yes New Discharge Prescriptions: New guaiFENesin [Mucinex] 600 mg PO Q12HR PRN tab PRN Reason: Cough Acetaminophen Tab [Tylenol] 650 mg PO Q6HR PRN tab PRN Reason: Mild Pain Or Fever > 100.5 Azithromycin [Zithromax Tri-Michael (3 tabs)] 500 mg PO DAILY 7 Days #7 tab Discharge Medication List Acetaminophen Tab [Tylenol] 650 mg PO Q6HR PRN tab 11/26/24 [Rx] Azithromycin [Zithromax Tri-Michael (3 tabs)] 500 mg PO DAILY 7 Days #7 tab 11/26/24 [Rx] guaiFENesin [Mucinex] 600 mg PO Q12HR PRN tab 11/26/24 [Rx] Follow up Appointment(s)/Referral(s): Tomasa Rehman MD [STAFF PHYSICIAN] - 2 Weeks [facility] [NON-STAFF] - 3 Days [facility] [NON-STAFF] - 3 Days Patient Instructions/Handouts: How to Stop Smoking (DC), Acute Kidney Injury (DC), Hyponatremia (DC), Bacterial Pneumonia (DC) Discharge Disposition: HOME SELF-CARE
--- NOTE | 2024-11-26 18:06 | P.NPCON ---
History of Present Illness - Reason for Consult acute renal failure - History of Present Illness Patient is a 54-year-old male with history of hypertension, lung nodule who was admitted to the hospital with complaints of shortness of breath. No previous history of kidney diseases Serum creatinine was noted to be 3.1 mg/dL. Patient is maintained on IV fluids and serum creatinine has decreased to 1.7 mg/dL. He denies use of any nonsteroidal anti-inflammatory agents No hypotension noted No significant urinary symptoms. Previous creatinine was 0.9 on 10/10/2023. Ultrasound did not show any evidence of obstruction. Past Medical History Past Medical History: COPD, Diabetes Mellitus, Hearing Disorder / Deafness History of Any Multi-Drug Resistant Organisms: None Reported Past Surgical History: No Surgical Hx Reported Past Anesthesia/Blood Transfusion Reactions: No Reported Reaction Additional Past Anesthesia/Blood Transfusion Reaction / Comment(s): na Past Psychological History: No Psychological Hx Reported Smoking Status: Current every day smoker Past Alcohol Use History: None Reported Past Drug Use History: Marijuana - Past Family History Father History Unknown: Yes Mother History Unknown: Yes Brother(s) History Unknown: Yes Medications and Allergies Home Medications Medication Instructions Recorded Confirmed Type Acetaminophen Tab [Tylenol] 650 mg PO Q6HR PRN tab 11/26/24 Rx Azithromycin [Zithromax Tri-Michael (3 500 mg PO DAILY 7 Days #7 tab 11/26/24 Rx tabs)] guaiFENesin [Mucinex] 600 mg PO Q12HR PRN tab 11/26/24 Rx Allergies Allergy/AdvReac Type Severity Reaction Status Date / Time No Known Allergies Allergy Verified 11/24/24 16:27 Physical Exam Vitals: Vital Signs Temp Pulse Pulse Resp BP Pulse Ox 11/26/24 12:18 99.7 F H 91 16 132/70 98 11/26/24 11:54 95 11/26/24 11:42 93 11/26/24 06:49 98.4 F 86 16 147/75 98 11/26/24 01:36 98.6 F 104 H 16 124/71 96 11/25/24 19:41 98.5 F 102 H 16 129/76 100 Intake and Output 11/26/24 11/26/24 11/26/24 06:59 14:59 22:59 Intake Total 236 Balance 236 Intake: Oral 236 Other: Voiding Method Toilet # Voids 3 Weight 72.575 kg Patient is awake, comfortable, no acute distress Examination of the heart S1 and S2 Examination of the lungs bilateral breath sounds are heard Abdomen is soft nontender Examination of lower extremities shows no significant edema. Results - Lab Results Most recent lab results Calcium 7.3 mg/dL (8.4-10.2) L 11/26/24 05:19 Magnesium 2.0 mg/dL (1.6-2.3) 11/26/24 05:19 11/26/24 05:19 11/26/24 05:19 Assessment and Plan Assessment: 1. Acute kidney injury associated with volume depletion, currently improving with IV hydration. UA shows 2+ protein and large blood. 2. Community-acquired left lung pneumonia 3. Anion gap metabolic acidosis secondary to acute kidney injury 4. Hypovolemic hyponatremia, improved with normal saline. Plan: Continue with IV fluids Add oral sodium bicarb Repeat labs in a.m. Continue antibiotics as per pulmonary. Avoid any nephrotoxic agents. Thank you for the consultation. We will continue to follow the patient with you during his hospitalization.
== END 2024-11-26 16:52 | disposition home or self-care (01) | DRG 871 ==
LOC: EC 12:21 → 4SSUR 15:45 → 5NMEDONC 16:13
PROVIDERS: ADMIT Student in an Organized Health Care Education/Training Program; ATTEND Student in an Organized Health Care Education/Training Program
DX: A41.59 Other Gram-negative sepsis (principal); A48.1 Legionnaires' disease; E87.20 Acidosis, unspecified; M62.82 Rhabdomyolysis; D63.8 Anemia in other chronic diseases classified elsewhere; E86.0 Dehydration; E11.649 Type 2 diabetes mellitus with hypoglycemia without coma; J43.9 Emphysema, unspecified; I10 Essential (primary) hypertension; E87.1 Hypo-osmolality and hyponatremia; N17.9 Acute kidney failure, unspecified; E11.65 Type 2 diabetes mellitus with hyperglycemia; Z11.52 Encounter for screening for COVID-19; D50.9 Iron deficiency anemia, unspecified; E86.1 Hypovolemia; E87.6 Hypokalemia; F17.210 Nicotine dependence, cigarettes, uncomplicated; H91.90 Unspecified hearing loss, unspecified ear; W19.XXXA Unspecified fall, initial encounter; Z79.84 Long term (current) use of oral hypoglycemic drugs; Y92.099 Unspecified place in other non-institutional residence as the place of occurrence of the external cause
CPT/HCPCS: 36415; 71046; 71250; 76770; 80048; 80053; 81001; 82550; 82728; 83036; 83540; 83550; 83605; 83735; 85025; 85027; 87040; 87070; 87205; 87449; 87636; 93005; 94640; 96361; 96365; 96375; 99285